=== PATIENT | male | born 1960 | race Asian ===

== ENCOUNTER 2017-07-06 12:12 | Day surgery (SDC) | payer OTHER ==
[~2017-07-06] VITALS: Ht 177.8 cm; Wt 75.4 kg
[2017-07-06] VITALS (12 sets, daily range): BP systolic 126–142; BP diastolic 74–90; PULSE 60–85; RESP 16–22; Ht 177.8 cm; Wt 75.4 kg
[~2017-07-06 12:12] MED LIST: CEFAZOLIN 2 GM/50 ML (PMX) 50 ML IVPB SCH; SOD CHLORIDE 0.9% 1,000 ML IV SCH
[2017-07-06] MEDS ORDERED: FLUT16SP17 NASAL (12:34)
[2017-07-06] MEDS ORDERED: AZEL137S9 NASAL (12:35)
[2017-07-06] MEDS ORDERED: BUPIVACAINE 0.25% (MPF) 30 ML INJ ONE (14:22)
[2017-07-06] MEDS ORDERED: METOCLOPRAMIDE 10 MG INJ IV PRN (14:30)
[2017-07-06] MEDS ORDERED: MIDAZOLAM 1 MG/ML 2 ML INJ IV PRN (14:30)
[2017-07-06] MEDS ORDERED: KETOROLAC 30 MG INJ IV PRN (14:30)
[2017-07-06] MEDS ORDERED: OXYCODONE/ACETAMINOPHEN (5/325) TAB PO PRN ×2 (14:30)
[2017-07-06] MEDS ORDERED: ONDANSETRON 4 MG INJ IV PRN (14:30)
[2017-07-06] MEDS ORDERED: DIPHENHYDRAMINE 50 MG INJ IV PRN (14:30)
[2017-07-06] MEDS ORDERED: MEPERIDINE 25 MG INJ IV PRN (14:30)
[2017-07-06] MEDS ORDERED: FENTAnyl 50 MCG/ML VIAL IV PRN ×3 (14:30)
[2017-07-06] MEDS ORDERED: LABETALOL HCL 20MG INJ IV PRN (14:30)
[2017-07-06] MEDS ORDERED: EPHEDrine SULFATE 50 MG/5 ML SYG IV PRN (14:30)
[2017-07-06] MEDS ORDERED: HYDROmorphONE (0.2 MG/ML) 10ML SYG IV PRN ×2 (14:30)
[2017-07-06] MEDS ORDERED: hydrALAzine 20 MG INJ IV PRN (14:30)
[2017-07-06] MEDS ORDERED: PROPOFOL 100 ML ONE (14:35)
[2017-07-06] MEDS ORDERED: FENTAnyl 50 MCG/ML VIAL ONE ×2 (14:36→14:45)
[2017-07-06] MEDS ORDERED: ACETAMINOPHEN 1000MG/100ML IV 100 ML ONE (14:44)
[2017-07-06] MEDS ORDERED: DEXAMETHASONE 4 MG/ML 1 ML INJ ONE (14:44)
[2017-07-06] MEDS ORDERED: CEFAZOLIN 1 GM INJ ONE (14:44)
[2017-07-06] MEDS ORDERED: LIDOCAINE 2% (SDV) 5 ML INJ ONE (14:44)
[2017-07-06] MEDS ORDERED: ROCURONIUM 50 MG INJ ONE (14:44)
[2017-07-06] MEDS ORDERED: ONDANSETRON 4 MG INJ ONE (15:03)
[2017-07-06] MEDS ORDERED: NEOSTIGMINE 3 MG/3 ML SYRINGE ONE (15:04)
[2017-07-06] MEDS ORDERED: GLYCOPYRROLATE 1 MG INJ ONE (15:05)
--- NOTE | 2017-07-06 15:11 | OPR ---
Date/Time of Note Date/Time of Note DATE: 07/06/17 TIME: 15:09 Operative Report Procedure Date: Jul 06, 2017 Preoperative Diagnosis symptomatic gallstones Postoperative Diagnosis same Operation/Procedure Performed 1. laparoscopic cholecystectomy 2. therapeutic injection of subcutaneous local anesthesia Surgeon see signature line Optimization Manager dustin khan Anesthesia Type: general Estimated Blood Loss: 0 - 10 ml's Transfusion none Specimen gallbladder Grafts/Implants none Complications none Pt Condition Post Procedure: stable Indications This is a 57-year-old male with symptoms and gallstones. He requests surgical excision of his gallbladder. Risks alternatives benefits and percent were discussed the patient. Patient's best understanding consents to the operation. Procedure Description Patient is taken to the OR and prepped and draped in usual sterile fashion. Surgical timeout was performed. IV antibiotics given. Infraumbilical transverse incision is made with a 15 blade. Dissection Carrs carried onto the fascia which was grasped with Melinda's and divided with curved Wolf scissors. 0 Vicryl U stitch was placed into the fascia. Blueness on trocar is introduced. Pneumoperitoneum is established. Midepigastric 12 mm optical trocar was placed under direct visualization. Right upper quadrant upper flank 5 mm optical trochars were placed under direct visualization. Upon initial inspection there are some adhesions to the gallbladder which were taken down bluntly. The gallbladder was grasped by the fundus and retracted in a lateral and our direction. This allowed mobilization with the cautery of the lateral aspect. Further dissection was performed to rule out careful dissection of the cystic duct. The critical view was established. The cystic duct was divided using a 35 mm echelon vascular stapler after clips were placed proximally. The staple line was also reinforced with clips due to thickened tissue. The cystic artery was divided with 2 clips proximal and clip distal. The gallbladder was taken off the gallbladder bed. There is good hemostasis. The gallbladder was retrieved using Endo Catch bag. Ports removed under direct visualization. 0 Vicryl U stitch was tied down. Skin was closed using skin horace. There appears to contains local anesthesia was injected throughout the incision site. Dry dressings were applied. Peter MELGAR Jul 06, 2017 15:11
[2017-07-06] MEDS ORDERED: BUPIVACAINE 0.25% (MPF) 30 ML INJ INJ ONE (15:26)
[2017-07-06] MEDS: HYDROmorphONE (0.2 MG/ML) 10ML SYG IV PRN ×3 (15:28→15:57)
[2017-07-06] MEDS ORDERED: HYDROCODONE/APAP (5/325) TAB PO ONE (15:30)
== END 2017-07-06 17:50 | disposition home or self-care (01) ==
LOC: SDS 12:12
PROVIDERS: ATTEND Surgery
DX: K80.10 Calculus of gallbladder with chronic cholecystitis without obstruction (principal)
CPT/HCPCS: 47562; 88304; J0131; J0690; J1100; J1170; J1200; J2175; J2405; J2710; J3010; Z7512; Z7610